=== PATIENT | female | born 1985 | race Caucasian/White ===

== ENCOUNTER 2018-08-04 08:28 | Outpatient (CLI) | payer OTHER | END 2018-08-04 09:13 | disposition home or self-care (01) | LOC: NUCLEAR 08:28 | DX: R94.6 Abnormal results of thyroid function studies (principal); E04.2 Nontoxic multinodular goiter | CPT/HCPCS: 78013; A9512 ==

== ENCOUNTER → 2018-08-05 | Outpatient (CLI) | payer OTHER | END | disposition home or self-care (01) | LOC: NUCLEAR 07:20 | DX: R94.6 Abnormal results of thyroid function studies (principal); E04.2 Nontoxic multinodular goiter | CPT/HCPCS: 78013; A9512 ==